=== PATIENT | female | born 1955 | race Two or more races ===

== ENCOUNTER 2018-03-26 20:05 | Emergency (ER) | payer MEDICARE, OTHER ==
[~2018-03-26] VITALS: Ht 154.9 cm; Wt 108.9 kg
[2018-03-26 20:08] VITALS: BP 144/90
[2018-03-26] MEDS ORDERED: ACETAMINOPHEN ES 500 MG TABLET PO ONE (20:30)
[2018-03-26] MEDS ORDERED: ACETAMINOPHEN ES 500 MG TABLET ONE (20:36)
== END 2018-03-26 22:20 | disposition home or self-care (01) ==
LOC: ER 20:06
DX: S20.211A Contusion of right front wall of thorax, initial encounter (principal); J44.9 Chronic obstructive pulmonary disease, unspecified; F20.9 Schizophrenia, unspecified; Z60.2 Problems related to living alone; V49.49XA Driver injured in collision with other motor vehicles in traffic accident, initial encounter; Y93.89 Activity, other specified; Y92.413 State road as the place of occurrence of the external cause; Y99.8 Other external cause status
CPT/HCPCS: 71045-TC; A4606; Z7610